=== PATIENT | female | born 1970 ===

== ENCOUNTER 2019-11-22 12:54 | Outpatient (CLI) | payer OTHER ==
[~2019-11-22 12:54] MED LIST: AMOX1TAB12 PO; AVALIDE; MOTRIN800 MG PO
== END 2019-11-22 12:57 | disposition home or self-care (01) ==
LOC: RAD 12:54
PROVIDERS: ATTEND Internal Medicine Cardiovascular Disease
DX: I10 Essential (primary) hypertension (principal)

== ENCOUNTER 2019-11-26 09:12 | Outpatient (CLI) | payer OTHER | END 2019-11-26 09:38 | disposition home or self-care (01) | LOC: NUCLEAR 09:12 | PROVIDERS: ATTEND Internal Medicine Cardiovascular Disease | DX: I73.9 Peripheral vascular disease, unspecified (principal) ==